=== PATIENT | male | born 1950 | race Caucasian/White ===

== ENCOUNTER 2021-01-05 18:08 | Emergency (ER) | payer MEDICARE ==
[2021-01-05] MEDS ORDERED: Ondansetron 4 MG Tab.DIS PO ONE (18:30)
--- NOTE | 2021-01-05 18:44 | EDM.PDOC ---
ED HPI GENERAL MEDICAL PROBLEM - General Chief Complaint: General Stated Complaint: NAUSEA, TIGHT STOMACHE, Time Seen by Provider: 01/05/21 18:30 Source of Information: Reports: Patient, Old Records History Limitations: Reports: No Limitations - History of Present Illness INITIAL COMMENTS - FREE TEXT/NARRATIVE: 70 yo male here with 3 days of intermittent abdominal fullness. He is now not able to keep liquids down since this noon. No fever. Yesterday ate a large hamburger that bothered him, then this AM he had a pancake that did not bother him. His last BM was hard and smaller than normal. Is not dizzy with standing. He still has his gallbladder. Onset: Gradual Onset Date: 01/02/21 Duration: Day(s): (3), Getting Worse Location: Reports: Abdomen Quality: Reports: Other (fullness) Severity: Moderate Improves with: Denies: Eating (not eating) Worsens with: Reports: Eating (or drinking) Context: Reports: Other (See HPI) Associated Symptoms: Reports: Nausea/Vomiting. Denies: Fever/Chills Treatments [employer]: Reports: Other (see below) (none) upper abdomen Pain Score (Numeric/FACES): 4 - Related Data Allergies Allergy/AdvReac Type Severity Reaction Status Date / Time No Known Allergies Allergy Verified 01/05/21 18:31 Home Meds: Home Meds Albuterol Sulfate 2.5 mg IH DAILY 01/05/21 [History] Budesonide/Formoterol Fumarate [Symbicort 160-4.5 Mcg Inhaler] 6 gm IH DAILY 01/05/21 [History] Tiotropium [place] [Spiriva Respimat] 4 gm INH ONETIME 01/05/21 [History] atorvaSTATin [Lipitor] 20 mg PO BEDTIME 01/05/21 [History] ED ROS GENERAL - Review of Systems Review Of Systems: See Below Constitutional: Reports: No Symptoms HEENT: Reports: No Symptoms Respiratory: Reports: No Symptoms Cardiovascular: Reports: No Symptoms GI/Abdominal: Reports: Abdominal Pain (fullness), Constipation (mild), Nausea, Vomiting. Denies: Black Stool, Bloody Stool, Diarrhea, Distension, Flatus, Hematemesis, Hematochezia, Melena : Reports: No Symptoms Musculoskeletal: Reports: No Symptoms Skin: Reports: No Symptoms Neurological: Reports: No Symptoms Psychiatric: Reports: No Symptoms ED EXAM, GENERAL - Physical Exam Exam: See Below Exam Limited By: No Limitations General Appearance: Alert, WD/WN, No Apparent Distress Eye Exam: Bilateral Eye: Normal Inspection Ears: Normal External Exam, Normal Canal, Hearing Grossly Normal, Normal TMs Ear Exam: Bilateral Ear: Auricle Normal, Canal Normal Nose: Normal Inspection, No Blood Throat/Mouth: Normal Inspection, Normal Lips, Normal Oropharynx, Normal Voice, No Airway Compromise Head: Atraumatic, Normocephalic Neck: Normal Inspection Respiratory/Chest: No Respiratory Distress, Lungs Clear, Normal Breath Sounds, No Accessory Muscle Use Cardiovascular: Regular Rate, Rhythm, No Edema GI/Abdominal: Normal Bowel Sounds, Soft, Non-Tender, No Distention. No: Distended Back Exam: Normal Inspection. No: CVA Tenderness (R), CVA Tenderness (L) Extremities: Normal Inspection, Normal Range of Motion, Non-Tender, No Pedal Edema Neurological: Alert, Oriented, CN II-XII Intact, Normal Cognition, No Motor/Sensory Deficits Psychiatric: Normal Affect, Normal Mood Skin Exam: Warm, Dry, Intact, Normal Color, No Rash Course - Vital Signs Last Recorded V/S: Last Vital Signs Temp 36.6 C 01/05/21 18:38 Pulse 97 01/05/21 18:38 Resp 16 01/05/21 18:38 BP 155/87 H 01/05/21 18:38 Pulse Ox 94 L 01/05/21 18:38 - Orders/Labs/Meds Orders: Active Orders 24 hr Category Date Time Status Abdomen 2V AP Flat Upright [CR] Stat Exams 01/05/21 18:38 Taken Meds: Medications Discontinued Medications Generic Name Dose Route Start Last Admin Trade Name Babita PRN Reason Stop Dose Admin Bisacodyl 10 mg 01/05/21 19:28 01/05/21 20:02 Bisacodyl 10 Mg Supp RECTAL 01/05/21 19:29 10 mg ONETIME ONE Administration Ondansetron HCl 4 mg 01/05/21 18:30 01/05/21 19:16 Ondansetron 4 Mg Tab.Dis PO 01/05/21 18:31 4 mg ONETIME ONE Administration Polyethylene Glycol 34 gm 01/05/21 19:32 01/05/21 20:03 Polyethylene Glycol 3350 Powder 17 Gm Packet PO 01/05/21 19:33 34 gm ONETIME ONE Administration Simethicone 160 mg 01/05/21 19:54 01/05/21 20:02 Simethicone 80 Mg Tab.Chew PO 01/05/21 19:55 160 mg ONETIME ONE Administration Simethicone Confirm 01/05/21 20:00 Simethicone 80 Mg Tab.Chew Administered 01/05/21 20:01 Dose 80 mg .ROUTE .STK-MED ONE - Radiology Interpretation Free Text/Narrative:: Flat/upright abdominal [id number] air and stool - Re-Assessments/Exams Free Text/Narrative Re-Assessment/Exam: 01/05/21 20:05 wants to go home and use suppository. Departure - Departure Time of Disposition: 20:10 Disposition: Home, Self-Care 01 Condition: Fair Clinical Impression: Constipation Qualifiers: Constipation type: slow transit constipation Qualified Code(s): K59.01 - Slow transit constipation - Discharge Information *PRESCRIPTION DRUG MONITORING PROGRAM REVIEWED*: Not Applicable *COPY OF PRESCRIPTION DRUG MONITORING REPORT IN PATIENT EDWIGE: Not Applicable Instructions: Constipation, Adult, [id number] Referrals: Alba Jacob PA-C [Primary Care Provider] - Forms: ED Department Discharge Additional Instructions: Take simethicone per package instructions for gas pain/distention. Take Miralax one dose as directed on the bottle every 12 hrs until you feel cleaned out, then once daily. Drink ample fluids. Use Zofran as needed for nausea control. Acetaminophen for pain relief. Recheck with your provider later in the week, return if worse. Sepsis Event Note (ED) - Evaluation Sepsis Screening Result: No Definite Risk - Focused Exam Vital Signs: Vital Signs Temp Pulse Resp BP Pulse Ox 01/05/21 18:38 36.6 C 97 16 155/87 H 94 L 01/05/21 18:30 36.6 C 97 16 155/87 H 94 L - My Orders Last 24 Hours: My Active Orders 01/05/21 18:38 Abdomen 2V AP Flat Upright [CR] Stat - Assessment/Plan Last 24 Hours: My Active Orders 01/05/21 18:38 Abdomen 2V AP Flat Upright [CR] Stat
[2021-01-05] MEDS ORDERED: Bisacodyl 10 MG Supp RECTAL ONE (19:28)
[2021-01-05] MEDS ORDERED: Polyethylene Glycol 3350 Powder 17 GM Packet PO ONE (19:32)
[2021-01-05] MEDS ORDERED: Simethicone 80 MG Tab.Chew PO ONE (19:54)
[2021-01-05] MEDS ORDERED: Simethicone 80 MG Tab.Chew ONE (20:00)
--- NOTE | 2021-01-06 10:16 | CR ---
Abdomen 2V AP Flat Upright CLINICAL HISTORY: Vomiting, abdominal fullness FINDINGS: No free air is seen. Small intestinal configuration is nonacute. There is moderate gas and feces throughout the colon. IMPRESSION: Nonacute intestinal gas pattern Retained stool
== END 2021-01-05 20:17 | disposition home or self-care (01) ==
LOC: JP.ED 18:08
DX: K59.01 Slow transit constipation (principal); Z79.899 Other long term (current) drug therapy
CPT/HCPCS: 74019; 99284; A9270